=== PATIENT | female | born 1970 ===

== ENCOUNTER 2018-08-04 09:39 | Emergency (ER) | payer OTHER ==
[2018-08-04 10:11] VITALS: RESP 18; O2SAT 98
[2018-08-04] MEDS ORDERED: Sodium Chloride 0.9% 1,000 ML IV ONE (10:25)
[2018-08-04] MEDS ORDERED: Sodium Chloride 0.9% 1,000 ML ONE (10:35)
--- NOTE | 2018-08-04 10:38 | C.PDOC ---
History Of Present Illness 48 y/o female presents to ED complaining of some cough and congestion for the past 3 days, and developing some body aches. Patient states that around 3:30 in the morning today, she got severe nausea and has vomited since then. Patient has mild diarrhea but no fever that she knows of. Patient admits she had multiple sick contacts at home; all family members were sick during the holidays. Time Seen by Provider: 08/04/18 09:58 Chief Complaint (Nursing): Flu-like Symptoms History Per: Patient History/Exam Limitations: no limitations Onset/Duration Of Symptoms: Days Current Symptoms Are (Timing): Still Present Past Medical History Reviewed: Historical Data, Nursing Documentation, Vital Signs Vital Signs: Last Vital Signs Temp 98.4 F 08/04/18 09:48 Pulse 84 08/04/18 09:48 Resp 18 08/04/18 09:48 BP 146/84 08/04/18 09:48 Pulse Ox 98 08/04/18 09:48 Surgical History: Back Surgery Family History: States: No Known Family Hx - Social History Hx Alcohol Use: Yes Hx Substance Use: No - Immunization History Hx Tetanus Toxoid Vaccination: No Hx Influenza Vaccination: No Hx Pneumococcal Vaccination: No Review Of Systems Constitutional: Negative for: Fever ENT: Positive for: Nose Congestion Cardiovascular: Negative for: Chest Pain Respiratory: Positive for: Cough. Negative for: Shortness of Breath Gastrointestinal: Positive for: Nausea, Vomiting, Diarrhea (mild) Skin: Negative for: Rash Physical Exam - Physical Exam Appears: Non-toxic, In Acute Distress (mild) Skin: Warm, Dry, No Rash Head: Atraumatic, Normacephalic Eye(s): bilateral: Normal Inspection Ear(s): Bilateral: Normal Oral Mucosa: Moist Throat: Normal, No Erythema, No Exudate, Other (uvula midline) Neck: Supple Chest: Symmetrical Cardiovascular: Rhythm Regular, No Murmur Respiratory: Normal Breath Sounds, No Rales, No Rhonchi, No Wheezing Gastrointestinal/Abdominal: Soft, No Tenderness Extremity: Bilateral: Atraumatic, Normal Color And Temperature, Normal ROM Neurological/Psych: Oriented x3, Normal Speech ED Course And Treatment - Laboratory Results Result Diagrams: 08/04/18 10:59 08/04/18 10:59 O2 Sat by Pulse Oximetry: 98 (RA) Pulse Ox Interpretation: Normal Medical Decision Making Medical Decision Making: Plan: --Bloodwork --Flu swab --IV fluids 1L --Toradol 30 mg IV --Zofran 4 mg IV Flu swab negative. Lab results discussed with patient. She reported improvement after IV hydration and meds. Rx written for zofran. Advised returning to the ED for any new or worsening symptoms. Disposition - Disposition Disposition: HOME/ ROUTINE Disposition Time: 12:45 Condition: STABLE Additional Instructions: YOSI ACKERMAN, thank you for letting us take care of you today. Your provider was Heather Frankel MD and you were treated for VOMITING/NAUSEA. The emergency medical care you received today was directed at your acute symptoms. If you were prescribed any medication, please fill it and take as directed. It may take several days for your symptoms to resolve. Return to the Emergency Department if your symptoms worsen, do not improve, or if you have any other problems. Please contact your doctor or call one of the physicians/clinics you have been referred to that are listed on the Patient Visit Information form that is included in your discharge packet. Bring any paperwork you were given at discharge with you along with any medications you are taking to your follow up visit. Our treatment cannot replace ongoing medical care by a primary care provider outside of the emergency department. Thank you for allowing the [facility] team to be part of your care today. If you had an X-Ray or CT scan: A Radiologist will review the ED reading if any change in treatment is needed we will contact you. If you had a blood, urine, or wound culture: It will take several days for the results, if any change in treatment is needed we will contact you. If you had an STI test: It will take 48 hours for the results. Please call after 1 week if you have not heard back. Prescriptions: Ondansetron ODT [Zofran ODT] 4 mg PO Q8H #9 odt Instructions: Viral Gastroenteritis, Adult (DC) Forms: Bantr (Welsh) - Clinical Impression Clinical Impression: Viral gastroenteritis - Scribe Statement The provider has reviewed the documentation as recorded by the Cristobalibmarya Zamora Provider Attestation: All medical record entries made by the Scribe were at my direction and personally dictated by me. I have reviewed the chart and agree that the record accurately reflects my personal performance of the history, physical exam, medical decision making, and the department course for this patient. I have also personally directed, reviewed, and agree with the discharge instructions and disposition.
[2018-08-04 11:02] LABS: BASO % 0.5 % (0.0-2.0); HEMOGLOBIN 12.7 g/dL (11.0-16.0); LYMPH # 0.9 K/uL (1.0-4.3); LYMPH % 13.8 % (20.0-40.0); MEAN CELL VOLUME 96.3 fL (81.0-99.0); MEAN CORPUSCULAR HEMOGLOBIN 32.7 pg (27.0-31.0); MEAN CORPUSCULAR HGB CONC 33.9 g/dL (33.0-37.0); MEAN PLATELET VOLUME 8.2 fL (7.2-11.7); MONO # 0.4 K/uL (0.0-0.8); MONO % 6.1 % (0.0-10.0); NEUT # 5.4 K/uL (1.8-7.0); NEUT % 79.6 % (50.0-75.0); NRBC % 0.1 % (0.0-2.0); RBC 3.89 Mil/uL (3.80-5.20); WHITE BLOOD COUNT 6.7 K/uL (4.8-10.8)
[2018-08-04 11:28] LABS: BLOOD UREA NITROGEN 15 mg/dL (7-17); CALCIUM 8.3 mg/dl (8.6-10.4); GFR NON-AFRICAN AMERICAN > 60
[2018-08-04 12:19] VITALS: BP 135/69; PULSE 74; TEMP 98.9
== END 2018-08-04 13:00 | disposition home or self-care (01) ==
LOC: C.ER 09:39
DX: A08.4 Viral intestinal infection, unspecified (principal)
CPT/HCPCS: 80048; 85025; 87804; 96374; 96375; 99284; J1885; J2405; J7030